=== PATIENT | female | born 1930 | race Caucasian/White ===

== ENCOUNTER 2018-11-25 14:06 | Inpatient (IN) ==
[2018-11-25 14:43] LABS: ALLEN TEST YES; BE -2.7 mmoll (-3.0-3.0); BLOOD TYPE ARTERIAL; HCO3-(ACT) 22.8 mmoll (20.0-26.0); O2(CT) 15.5 mL/dL (15.0-23.0); O2HB 94.1 % (95.0-99.0); PCO2(98.6) 40 mmHg (35-45); PO2(98.6) 72 mmHg (60-100); SAMPLE BLOOD; SAO2 97.4 % (95.0-100.0); THB 11.7 g/dL (11.5-17.4); pH(98.6) 7.36 (7.35-7.45)
[2018-11-25 14:44] LABS: MODALITY NRB
[2018-11-25 15:05] LABS: BASO# 0.03 X1000 (0.0-0.2); BASO% 0.1 % (0.0-0.8); EOS# 0.05 X1000 (0.0-0.7); EOS% 0.2 % (0.0-10.0); HEMATOCRIT 36.6 % (37.0-47.0); HEMOGLOBIN 12.4 g/dL (12.0-16.0); IMM GRAN% 0.5 % (0.0-0.5); LYMPH# 1.25 X1000 (1.2-3.4); LYMPH% 5.7 % (20.5-51.1); MCH 33.7 PG (27-31); MCHC 33.9 g/dL (33-37); MCV 99.5 FL (81-99); MONO# 0.83 X1000 (0.11-0.59); MONO% 3.8 % (1.7-9.3); MPV 11.8 FL (7.4-10.4); NEUT# 19.86 X1000 (1.4-6.5); NEUT% 89.7 % (42.2-75.2); PLT 217 X1000 (130-400); RBC 3.68 XMIL (4.2-5.4); WBC 22.12 X1000 (4.8-10.8)
--- NOTE | 2018-11-25 15:08 | Diag Imaging Result Doc PS360 ---
CHEST-1 VIEW - 11/25/2018 INDICATION: sob COMPARISON: 02/09/2018 FINDINGS: There is new dense infiltrate in the right midlung and left lung base. Heart size is grossly normal. No pneumothorax or pleural effusion. IMPRESSION: Dense bilateral infiltrates, correlate for pneumonia. Electronically signed by Rambo Hi 11/25/2018 3:05 PM
--- NOTE | 2018-11-25 15:27 | PROVIDER DOCUMENTATION ---
This chart was entered by Eboni Jackson Scribe, acting as scribe for Luis Nixon MD. HPI-Respiratory General - General Chief Complaint: Shortness of Breath Stated Complaint: SOB Time Seen by Provider: 11/25/18 14:25 Source: patient, EMS Unable to obtain history due to:: altered Allergies/Adverse Reactions: Patient Allergies Allergy/AdvReac Type Severity Reaction Status Date / Time No Known Allergies Allergy Verified 11/25/18 15:39 Home Medications: Home Medication List Medication Instructions Recorded Confirmed Last Taken Type Multivitamin [Multivitamins] 1 each PO DAILY 01/02/16 11/25/18 01/02/16 07:45 History Propranolol HCl 60 mg PO DAILY 01/02/16 11/25/18 01/02/16 07:45 History Aspirin [Adult Aspirin Regimen] 81 mg PO DAILY 04/15/18 11/25/18 Unknown History Lactulose 10 mg PO DAILY 04/15/18 11/25/18 Unknown History Melatonin 10 mg PO QHS 04/15/18 11/25/18 Unknown History Quetiapine Fumarate [Seroquel] 25 mg PO DAILY 04/15/18 11/25/18 Unknown History Acetaminophen 2 tab PO Q8HR PRN 11/25/18 11/25/18 Unknown History Clonazepam 1 tab PO QAM & NOON 11/25/18 11/25/18 Unknown History Clonazepam 2 tab PO QHS 11/25/18 11/25/18 Unknown History Duloxetine [Cymbalta] 30 mg PO QHS 11/25/18 11/25/18 Unknown History Levofloxacin 250 mg PO DAILY 11/25/18 11/25/18 Unknown History Megestrol Acetate [Megace Liquid] 5 ml PO BID 11/25/18 11/25/18 Unknown History Quetiapine Fumarate 1 tab PO DAILY 11/25/18 11/25/18 Unknown History Rivastigmine Tartrate 3 mg PO QHS 11/25/18 11/25/18 Unknown History [Rivastigmine] Rivastigmine [Exelon] 1.5 mg PO DAILY 11/25/18 11/25/18 Unknown History - History of Present Illness-Resp Nature of Presenting Problem: 87 yof presents to the ed via ems as a dnr and per ems sob with possible aspiration. pt is unresponsive on exam Quality of Pain: reports: none Severity in ED: reports: mild Onset/Duration: reports: this morning Timing: reports: still present Cough Quality/Degree: reports: no cough Episode Frequency: occasional episodes Current Respiratory Medication Therapy: Initiated see nurses note Modifying Factors: improves with: nothing Associated Symptoms: reports: shortness of breath. denies: cough, fever/chills Similar Symptoms Previously?: Yes Recently seen or treated by another doctor?: No Review of Systems - Adult - REVIEW OF SYSTEMS - ADULT ROS:: unobtainable per condition Constitutional: denies: chills, fever Eyes: reports: no symptoms reported Ears, Nose, Mouth & Throat: reports: no symptoms reported Cardiovascular: denies: chest pain, palpitations Respiratory: reports: see HPI, shortness of breath. denies: cough Gastrointestinal: denies: abdominal pain, diarrhea, nausea, vomiting Genitourinary: reports: no symptoms reported Musculoskeletal: reports: no symptoms reported Integumentary: reports: no symptoms reported Neurological: denies: dizziness/vertigo, headache/migraines Psychiatric: reports: no symptoms reported Endocrine: reports: no symptoms reported Hematologic/Lymphatic: reports: no symptoms reported Allergic/Immunologic: reports: no symptoms reported All Other Systems: Reviewed and Negative Past History - Adult - PAST MEDICAL HISTORY-ADULT Review of Records: reports: Old Records Reviewed, Nursing Assessment Review, Medications Reviewed, Social history reviewed & non-contributory. Major Childhood Illnesses: reports: denies history Cardiovascular: reports: HTN Respiratory: reports: denies history Gastrointestinal: reports: GERD Obstetrical/Gynecological: reports: denies history Genitourinary: reports: denies history Musculoskeletal: reports: denies history Hand Dominance: Right Handed Neurological: reports: dementia, Parkinson's, TIA Endocrine/Immune: reports: Diabetes Diabetes Type: Type 2 Other Conditions: reports: denies history - PRIOR SURGERIES/PROCEDURES Surgical/Procedure History: reports: reviewed, not pertinent - IMMUNIZATION STATUS Childhood Immunizations: See Nurse Assessment Flu Vaccine: See Nurse Assessment - FAMILY HISTORY Family History: reviewed, not pertinent - SOCIAL HISTORY Smoking: non-smoker Substance Use: none/never Living Situation: family Physical Exam-General - PHYSICAL EXAM-ADULT Initial Vital Signs Reviewed: Yes - CONSTITUTIONAL General Appearance: other (unresponsive). negative: appears well - EYES Eyes: pale conjunctivae - HEAD, EARS, NOSE, MOUTH & THROAT HENMT: negative: moist mucous membranes - NECK Neck: normal inspection - RESPIRATORY Respiratory: respiratory distress (84 o2 sat), increased rate (28) - CARDIOVASCULAR Cardiovascular: normal peripheral pulses, regular rate, rhythm - GASTROINTESTINAL (ABDOMEN) Abdominal Exam: normal bowel sounds, non tender, soft - LYMPHATIC Lymphatic: no adenopathy - MUSCULOSKELETAL Back Exam: normal inspection, no CVA tenderness, no vertebral tenderness Extremity: pelvis stable - SKIN Integumentary: pallor - PSYCHIATRIC Psych/Mental Status: other (unresponsive) Progress - PLAN OF CARE/RESULTS Progress/Plan/Lab Results: Laboratory Results - last 24 hr 11/25/18 11/25/18 11/25/18 14:25 14:25 14:25 WBC 22.12 H RBC 3.68 L Hgb 12.4 Hct 36.6 L MCV 99.5 H MCH 33.7 H MCHC 33.9 RDW Std Deviation 13.0 Plt Count 217 MPV 11.8 H Immature Gran % (Auto) 0.5 Neut % (Auto) 89.7 H Lymph % (Auto) 5.7 L Angelina % (Auto) 3.8 Eos % (Auto) 0.2 Baso % (Auto) 0.1 Immature Gran # (Auto) 0.10 H Neut # (Auto) 19.86 H Lymph # (Auto) 1.25 Angelina # (Auto) 0.83 H Eos # (Auto) 0.05 Baso # (Auto) 0.03 Specimen Type Sample Site pH pCO2 pO2 HCO3 Base Excess Oxyhemoglobin ABG O2 Sat (Calculated) ABG O2 Saturation ABG Carboxyhemoglobin ABG Methemoglobin Migue Test A-a O2 Difference Total Hemoglobin Lactate Liter Flow Blood Gas Modality FiO2 % Sodium 154 H Potassium 3.6 Chloride 117 H Carbon Dioxide 23 L Anion Gap 14 BUN 25 H Creatinine 1.2 H Estimated GFR/1.73 m2 42 BUN/Creatinine Ratio 21 Glucose 138 H Calculated Osmolality 312 Calcium 9.7 Magnesium Total Bilirubin 0.61 AST 20 ALT 15 Alkaline Phosphatase 120 H Troponin T [id number]-[id number] Pept Total Protein 7.7 Albumin 3.6 Globulin 4.1 Albumin/Globulin Ratio 0.9 Plasma Lactate 1.7 Urine Source Urine Color Urine Clarity Urine Turbidity Urine pH Ur Specific [place] Urine Protein Ur Glucose (Stick) Urine Ketones Ur Ketones (Stick) Urine Blood Urine Nitrite Urine Bilirubin Urine Urobilinogen Urobilinogen Dipstick Urine Leukocytes Urine WBC (Auto) Urine RBC (Auto) U Epithel Cells (Auto) Urine Bacteria (Auto) Urine Microscopic RBC Urine WBC Urine Microscopic WBC Ur Epithelial Cells Urine Bacteria Urine Glucose 11/25/18 11/25/18 11/25/18 14:25 14:25 14:25 WBC RBC Hgb Hct MCV MCH MCHC RDW Std Deviation Plt Count MPV Immature Gran % (Auto) Neut % (Auto) Lymph % (Auto) Angelina % (Auto) Eos % (Auto) Baso % (Auto) Immature Gran # (Auto) Neut # (Auto) Lymph # (Auto) Angelina # (Auto) Eos # (Auto) Baso # (Auto) Specimen Type Sample Site pH pCO2 pO2 HCO3 Base Excess Oxyhemoglobin ABG O2 Sat (Calculated) ABG O2 Saturation ABG Carboxyhemoglobin ABG Methemoglobin Migue Test A-a O2 Difference Total Hemoglobin Lactate Liter Flow Blood Gas Modality FiO2 % Sodium Potassium Chloride Carbon Dioxide Anion Gap BUN Creatinine Estimated GFR/1.73 m2 BUN/Creatinine Ratio Glucose Calculated Osmolality Calcium Magnesium 2.2 Total Bilirubin AST ALT Alkaline Phosphatase Troponin T < 0.010 Oxq-[id number]-Qpxtdjhpnjp Pept 2908 H Total Protein Albumin Globulin Albumin/Globulin Ratio Plasma Lactate Urine Source Urine Color Urine Clarity Urine Turbidity Urine pH Ur Specific [place] Urine Protein Ur Glucose (Stick) Urine Ketones Ur Ketones (Stick) Urine Blood Urine Nitrite Urine Bilirubin Urine Urobilinogen Urobilinogen Dipstick Urine Leukocytes Urine WBC (Auto) Urine RBC (Auto) U Epithel Cells (Auto) Urine Bacteria (Auto) Urine Microscopic RBC Urine WBC Urine Microscopic WBC Ur Epithelial Cells Urine Bacteria Urine Glucose 11/25/18 11/25/18 11/25/18 14:35 15:21 15:21 WBC RBC Hgb Hct MCV MCH MCHC RDW Std Deviation Plt Count MPV Immature Gran % (Auto) Neut % (Auto) Lymph % (Auto) Angelina % (Auto) Eos % (Auto) Baso % (Auto) Immature Gran # (Auto) Neut # (Auto) Lymph # (Auto) Angelina # (Auto) Eos # (Auto) Baso # (Auto) Specimen Type ARTERIAL Sample Site R RADIAL pH 7.36 pCO2 40 pO2 72 HCO3 22.8 Base Excess -2.7 Oxyhemoglobin 94.1 L ABG O2 Sat (Calculated) 15.5 ABG O2 Saturation 97.4 ABG Carboxyhemoglobin 2.40 ABG Methemoglobin 1.0 Migue Test YES A-a O2 Difference 591.0 Total Hemoglobin 11.7 Lactate 1.60 Liter Flow 15.0 Blood Gas Modality NRB FiO2 % 100.0 Sodium Potassium Chloride Carbon Dioxide Anion Gap BUN Creatinine Estimated GFR/1.73 m2 BUN/Creatinine Ratio Glucose Calculated Osmolality Calcium Magnesium Total Bilirubin AST ALT Alkaline Phosphatase Troponin T Sou-X-Pbthklqhddv Pept Total Protein Albumin Globulin Albumin/Globulin Ratio Plasma Lactate Urine Source Cancelled CATH Urine Color Cancelled YELLOW Urine Clarity HAZY A Urine Turbidity Cancelled Urine pH Cancelled 5.0 Ur Specific [place] Cancelled >= 1.030 Urine Protein Cancelled 100 A Ur Glucose (Stick) Cancelled Urine Ketones NEGATIVE Ur Ketones (Stick) Cancelled Urine Blood Cancelled TRACE-INTACT A Urine Nitrite Cancelled NEGATIVE Urine Bilirubin Cancelled NEGATIVE Urine Urobilinogen 0.2 Urobilinogen Dipstick Cancelled Urine Leukocytes Cancelled Urine WBC (Auto) Cancelled Urine RBC (Auto) Cancelled U Epithel Cells (Auto) Cancelled Urine Bacteria (Auto) Cancelled Urine Microscopic RBC <10 Urine WBC NEGATIVE Urine Microscopic WBC <10 Ur Epithelial Cells <10 Urine Bacteria NEGATIVE Urine Glucose NEGATIVE Orders Category Date Time Status Admit - [facility] Routine AdmDCTranf 11/25/18 16:32 Active Activity - Up with Assistance ORDERED Care 11/25/18 16:32 Active Apply Mechanical Device [QM] ORDERED Care 11/25/18 16:32 Active Aspiration Precautions DIRECTED Care 11/25/18 16:32 Active DVT/PE Risk Assess/Protocol [QM] ORDERED Care 11/25/18 16:32 Active Elevate Head of Bed DIRECTED Care 11/25/18 16:32 Active Encourage Fluids DIRECTED Care 11/25/18 16:32 Active Intake and Output-Strict Q 8-HR ASSESS Care 11/25/18 16:32 Active Nursing- Assist w/ IS as order ORDERED Care 11/25/18 16:32 Active Resuscitation Status Routine Care 11/25/18 16:07 Ordered Turn, Cough and Deep Breathe Q2HR Care 11/25/18 16:32 Active Update & Confirm Home Medicati ROUTINE Care 11/25/18 16:32 Active Vital Signs Order Q 4-HR ASSESS Care 11/25/18 16:32 Active NPO Diet 11/25/18 16:09 Active CHEST-1 VIEW [RAD] Stat Exams 11/25/18 14:25 Completed ABG [RESP] Routine Lab 11/25/18 14:35 Completed BLOOD CULTURE [BLDCUL] Stat Lab 11/25/18 14:26 Results CBC WITH DIFF [HEME] Routine Lab 11/26/18 07:16 Results CBC WITH DIFF [HEME] Stat Lab 11/25/18 14:25 Completed COMPREHENSIVE METABOLIC PANEL [CHEM] Routine Lab 11/26/18 07:16 Received COMPREHENSIVE METABOLIC PANEL [CHEM] Stat Lab 11/25/18 14:25 Completed LACTATE, PLASMA [CHEM] Stat Lab 11/25/18 14:25 Completed MAGNESIUM [CHEM] Stat Lab 11/25/18 14:25 Completed PRO B-NATRIURETIC PEPTIDE Stat Lab 11/25/18 14:25 Completed SPUTUM CULTURE WITH GRAM STAIN [RM] Routine Lab 11/25/18 18:20 Results TROPONIN T Stat Lab 11/25/18 14:25 Completed Albuterol 2.5MG/Ipratrop 0.5MG [Duoneb (A & A)] Med 11/25/18 16:32 Active 3 ml INH Q2H PRN PRN Albuterol 2.5MG/Ipratrop 0.5MG [Duoneb (A & A)] Med 11/25/18 19:30 Active 3 ml INH RTQ4H Aerosol Treatments Routine Oth 11/25/18 16:32 Completed Aerosol Treatments Stat Oth 11/25/18 16:32 Completed Incentive Spirometer Routine Oth 11/25/18 16:32 Completed Oxygen Device Routine Oth 11/25/18 16:32 Completed Pulse Oximetry Routine Oth 11/25/18 16:32 Completed EKG [EKG] Stat Ther 11/25/18 14:25 Draft Transfer/Admit Order [TRANSFER] Routine Transfer 11/25/18 16:09 Completed Result Diagrams: 11/26/18 07:16 11/25/18 14:25 - REASSESSMENT Reassessment #1 Time Reassessed: 15:16 Status: unchanged - XRAY 1 XRAY: Bilateral XRAY Study: Chest Impression: See EMR Report (CHEST-1 VIEW - 11/25/2018 INDICATION: sob COMPARISON: 02/09/2018 FINDINGS: There is new dense infiltrate in the right midlung and left lung base. Heart size is grossly normal. No pneumothorax or pleural effusion. IMPRESSION: Dense bilateral infiltrates, correlate for pneumonia. Electronically signed by Rambo Hi 11/25/2018 3:05 PM 1505 Interpreting Physician: Rambo Hi MD Dictated Date/Time: 11/25/18 1505 cc: Luis Nixon MD; Deonte Crowley) - CONSULTS/PCP/HOSPITALIST Notification #1 *Consult/PCP/Hospitalist*: hospitalist dr pink Time Discussed: 15:21 Reason/Comments: pneumonia Departure - Departure Date of Disposition Decision: 11/25/18 Time of Disposition Decision: 15:21 DIAGNOSIS: Pneumonia Disposition: ADMITTED INPATIENT 09 Certified Medical Emergency: Emergent Condition: Fair - Critical Care Note This patient required my direct & personal management of CC.: Yes Total Time (mins): 34 Critical Care Statement: This patient required my direct personal management to treat or rule out processes, the absence of which, could potentiallly result in sudden, clinically significant life or limb threatening deterioration. Attestation - Physician/ BETHANY Attestation Patient care was provided by Advanced Practice Provider:: No The physician spent face to face time with patient:: Yes Advanced Practice Provider documentation review:: Supervising physician onsite and consulted in the evaluation and care of this patient. The physician did have a face to face encounter with the patient. This chart was documented by the indicated scribe, (Eboni Jackson, Anshu) and accurately reflects the services I performed and decisions made by me, Luis Nixon MD, as attested by the provider's signature.
--- NOTE | 2018-11-25 15:28 | EKG Report ---
Test Performed on : 11/25/2018 2:25:04 PM Test Reason : SOB Blood Pressure : / mmHG Vent. Rate : 100 BPM Atrial Rate : 100 BPM P-R Int : 194 ms QRS Dur : 084 ms QT Int : 336 ms P-R-T Axes : 081 012 092 degrees QTc Int : 433 ms Normal sinus rhythm. Nonspecific T wave abnormality Abnormal ECG When compared with ECG of 27-APR-2018 11:59, NE interval has decreased Vent. rate has increased BY [address] no longer elevated in Lateral leads T wave inversion now evident in Lateral leads Unconfirmed Result
[2018-11-25 15:40] LABS: URINE SOURCE CATH
[2018-11-25 15:46] LABS: ALB/GLOB RATIO 0.9; ALBUMIN 3.6 g/dL (3.5-5.0); CALCIUM 9.7 mg/dL (8.8-10.2); CREATININE 1.2 mg/dL (0.5-0.9); POTASSIUM 3.6 mmol/L (3.5-5.1); TOTAL BILIRUBIN 0.61 mg/dL (0.20-1.00); TOTAL PROTEIN 7.7 g/dL (6.3-8.3)
[2018-11-25 15:46] LABS: BILIRUBIN URINE NEGATIVE (NEGATIVE); BLOOD URINE TRACE-INTACT (NEGATIVE); CLARITY HAZY (CLEAR); COLOR YELLOW; GLUCOSE URINE NEGATIVE (NEGATIVE); KETONE URINE NEGATIVE (NEGATIVE); LEUKOCYTES URINE NEGATIVE (NEGATIVE); NITRITE URINE NEGATIVE (NEGATIVE); PROTEIN URINE 100 mg/dL (NEGATIVE); SP GRAVITY URINE >= 1.030; UROBILINOGEN URINE 0.2 EU/dL (0.2-1.0)
[2018-11-25 15:48] LABS: URINE BACTERIA NEGATIVE /HFP; URINE EPITHELIAL CELLS <10 /HPF (<10); URINE RBC <10 /HPF (<10); URINE WBC <10 /HPF (<10)
[2018-11-25] MEDS ORDERED: DUONEB (A & A) INH PRN (16:32)
[2018-11-25] MEDS ORDERED: NS 1,000 ML IV SCH (16:45)
--- NOTE | 2018-11-25 17:59 | HISTORY AND PHYSICAL ---
PRIMARY CARE PROVIDER: [facility]. CHIEF COMPLAINT: Aspiration per family at bedside. HISTORY OF PRESENT ILLNESS: Ms. Chao is an 87-year-old female who has a past medical history of Alzheimer's dementia. She is a permanent resident of [facility]. DNR level 1 with a past medical history of insomnia, Parkinson's, atrial flutter, anorexia, anemia, chronic kidney disease stage 3, bilateral hip osteoarthritis, spondylosis, anxiety, depression, essential hypertension, frequent UTIs, constipation, history of falls per family at bedside. Saturday, when they went to go visit her she aspirated on her dinner. She was given supplemental O2, placed on breathing treatments, then Saturday she continued to be lethargic and remained on O2. That night she aspirated again and then again this morning. She had labored breathing. This time she aspirated on ice cream. She was continued on O2. She was given more breathing treatments, suction therapy. O2 saturations per family report was only brought up to 75%, so they were instructed to send her to the ED. Workup in the ED with a chest x-ray that revealed dense bilateral infiltrates that correlate for pneumonia. She was afebrile, slightly tachycardic, tachypneic, normal blood pressures. Initially, she was 84% on room air. She was placed on a non- rebreather. Her O2 saturations came up to 93%. She had an elevated white count of 22. A sodium of 154, potassium of 3.6, BUN of 25, creatinine 1.2, blood glucose of 138. Urinalysis was negative for bacteria. Per family, she is to continue to be a DNR level 1. She will remain NPO, placed on aspiration precautions. The patient is not responding to any questions. She did not follow any commands. She did arouse with touch, but nothing that was audible that you could understand. REVIEW OF SYSTEMS: A 14 point review of systems unable to obtain secondary to the patient's condition. PAST MEDICAL HISTORY: 1. Insomnia. 2. Parkinson's. 3. Atrial flutter. 4. Anorexia. 5. Anemia. 6. Chronic kidney disease stage 3. 7. Bilateral hip osteoarthritis. 8. Anxiety and depression. 9. Essential hypertension. 10. Frequent UTIs. 11. Constipation. 12. History of falls. 13. Alzheimer's dementia. All history obtained from record and family. PAST SURGICAL HISTORY: 1. Multiple breast biopsies. 2. Hysterectomy. 3. Right shoulder pinning. 4. Cataract surgery. SOCIAL HISTORY: She is a long-term resident of [facility] for a year. 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 Never a smoker. No alcohol. No illicit drug use. Per medical record, she is a wanderer, combative at times, could not feed herself, is always confused and needs assistance with transfers. FAMILY HISTORY: Brother with schizophrenia. Mother and father with heart disease. Several brothers and sisters with numerous types of cancer. HOME MEDICATIONS: Have not been reconciled. ALLERGIES: No known drug allergies. PHYSICAL EXAMINATION: VITAL SIGNS: Temperature is 97.5 degrees, heart rate 100, respirations 25, blood pressure 140/64, O2 is 93% on non-rebreather. GENERAL: Ms. Chao is an 87-year-old female who is lying on the bed, did not follow any commands. She does somewhat arouse to physical stimuli. She is tachypneic but in no acute distress. HEENT: Atraumatic, normocephalic. PERRL. NECK: Supple. Trachea midline. CARDIOVASCULAR: S1, S2 appreciated. No murmurs, gallops, rubs noted. No JVD noticeable. No lower extremity edema. RESPIRATORY: Lung sounds bilateral rhonchi throughout all lung palmer. ABDOMEN: Appears to be soft, nontender, nondistended. Positive bowel sounds 4 quadrants. EXTREMITIES: No clubbing or cyanosis. NEUROLOGIC: The patient's baseline is Alzheimer's dementia, confused, wanders, combative, cannot feed self, assist with transfers. Per [id number] at bedside sometimes she does not recognize them. Again she did not follow any commands, answer any questions, but she will awaken somewhat to physical stimuli. DIAGNOSTIC DATA: 1. Chest x-ray: Dense bilateral infiltrates. Correlate for pneumonia. 2. EKG: Normal sinus rhythm at 100 beats per minute. LABORATORY DATA: White count 22, hemoglobin and hematocrit 12 and 36, platelet count 217,000. Sodium 154, potassium 3.6, BUN 25, creatinine 1.2, blood glucose is 138, alkaline phosphatase 120. ProBNP is 2908. Urinalysis is negative. ASSESSMENT AND PLAN: 1. Aspiration pneumonia. The patient is from a intermediate. We will treat her with Zyvox and cefepime, IV fluids, aggressive pulmonary toilet, bronchodilators. Place her on aspiration precautions. Remain NPO. 2. Acute kidney injury on chronic kidney disease. We will continue with gentle hydration. 3. Hypernatremia, in the setting of dehydration. We will continue with gentle hydration. Recheck a.m. labs. 4. Alzheimer's dementia. The patient is a permanent resident at [facility]. Per their note, she is always confused. She is a wanderer, combative, could not feed self and needs assistance with all transfers. 5. DNR level 1. We will get palliative care on board for goals of care. The family was asking about possible hospice at some point if she did not make a recovery. They do not want a feeding tube. 6. Further recommendation to follow physician evaluation and laboratory data. 7. Hypoxemia. We will continue with supplemental O2. 8. Further recommendation to follow physician evaluation, laboratory data and diagnostic data. Dictated by OZZY Arriaga for Abby Agudelo MD cc: Abby Agudelo MD I performed a face to face encounter on the patient. I reviewed all labs and imaging on the patient. I agree with the H&P as dictated. is a 87 year old female with a history of multiple medical problems who was sent to the ER from [facility] due to AMS and suspected aspiration pneumonia. A chest xray revealed dense bilateral infiltrates. On exam, the patient is somnolent. Her breath sounds are coarse with rhonchi bilaterally. She is tachycardic. S1, S2 normal. The patient is critically ill. Her family has decided to make her a DNR level 1. The patient has bilateral lobe pneumonia. Will start IV antibiotics at the family's request. They would like to see if the patient improves before making a decision regarding hospice. MATTHEWD
[2018-11-25] MEDS: D5W 1,000 ML IV SCH (18:51)
[2018-11-25] MEDS: MAXIPIME 1 GM in NS 50 ML IV SCH (18:52)
[2018-11-25] MEDS: DUONEB (A & A) INH SCH ×2 (19:05→23:25)
[2018-11-25] MEDS: ZYVOX 600 MG/D5W 600 MG/300 ML IVPB IV SCH (20:06)
[2018-11-26] MEDS ORDERED: KLONOPIN PO ONE (01:51)
[2018-11-26] MEDS ORDERED: MELATONIN PO ONE (01:52)
[2018-11-26] MEDS ORDERED: SEROQUEL PO ONE (01:53)
[2018-11-26] MEDS: DUONEB (A & A) INH SCH ×6 (03:34→23:40)
[2018-11-26] MEDS: TYLENOL PR PRN ×2 (03:45→09:37)
[2018-11-26] MEDS: MAXIPIME 1 GM in NS 50 ML IV SCH ×2 (04:53→17:01)
--- NOTE | 2018-11-26 07:10 | Diag Imaging Result Doc PS360 ---
EXAM: CHEST-PORTABLE 11/26/2018 HISTORY: Pneumonia TECHNIQUE: AP portable at 0540 COMMENT: The inspiration is less optimal than on 11/25/2018. There is increased alveolar opacity bilaterally which may be a consequence of the poor inspiration. There is obscuration of the right costophrenic angle which was not the case previously. IMPRESSION: Bilateral bronchopneumonia particularly in the right upper lobe. This may questionably be worse than on the previous study. Electronically signed by Jerson Garrido 11/26/2018 7:08 AM
[2018-11-26 07:49] LABS: BASO# 0.02 X1000 (0.0-0.2); BASO% 0.1 % (0.0-0.8); EOS# 0.04 X1000 (0.0-0.7); EOS% 0.2 % (0.0-10.0); HEMOGLOBIN 10.6 g/dL (12.0-16.0); IMM GRAN# 0.09 X1000 (0.0-0.04); IMM GRAN% 0.5 % (0.0-0.5); LYMPH% 6.8 % (20.5-51.1); MCH 33.9 PG (27-31); MCHC 34.2 g/dL (33-37); MPV 11.8 FL (7.4-10.4); NEUT# 15.56 X1000 (1.4-6.5); NEUT% 88.4 % (42.2-75.2); PLT 193 X1000 (130-400); RBC 3.13 XMIL (4.2-5.4); RDW 12.9 % (11.5-14.5); WBC 17.61 X1000 (4.8-10.8)
[2018-11-26 08:05] LABS: ALB/GLOB RATIO 0.9; ALBUMIN 2.9 g/dL (3.5-5.0); BANDS 20 % (0-1); CALCIUM 9.4 mg/dL (8.8-10.2); CREATININE 1.2 mg/dL (0.5-0.9); LYMPHS 12 % (21-51); POTASSIUM 3.8 mmol/L (3.5-5.1); SEGS 64 % (42-75); TOTAL BILIRUBIN 0.59 mg/dL (0.20-1.00); TOTAL PROTEIN 6.1 g/dL (6.3-8.3)
[2018-11-26] MEDS: ZYVOX 600 MG/D5W 600 MG/300 ML IVPB IV SCH ×2 (08:31→21:04)
[2018-11-26] MEDS ORDERED: STERILE WATER INJ. INJ ONE (08:56)
[2018-11-26] MEDS ORDERED: GEODON IM ONE (08:56)
[2018-11-26] MEDS: D5W 1,000 ML IV SCH (11:09)
[2018-11-26] MEDS: ATIVAN IV PRN ×2 (12:18→22:17)
[2018-11-26] MEDS ORDERED: ATROPINE 1 % OPHTH SOLN SL PRN (14:18)
--- NOTE | 2018-11-26 15:35 | PROGRESS NOTE ---
DATE: 11/26/2018 SUBJECTIVE: The patient is resting comfortably in bed. She is unresponsive. OBJECTIVE: Vital Signs: Temperature 99 degrees, blood pressure 129/63, heart rate 81, respirations 20, and O2 saturation 98% on nonrebreather mask. General: This is a chronically ill- appearing elderly female lying in bed in no acute distress. Heart: S1 and S2 normal. Lungs: Coarse breath sounds with rhonchi bilaterally. Abdomen: Positive bowel sounds. Soft, nontender, nondistended. Extremities: No edema, no cyanosis. Neurologic: The patient is comatose. LABS: White blood cell count 17, hemoglobin 10, hematocrit 31, platelets 193,000. Sodium 149, potassium 3.8, chloride 116, CO2 of 23, BUN 29, creatinine 1.2, glucose 136, AST 18, ALT 19, alkaline phosphatase 63. ASSESSMENT AND PLAN: 1. Acute hypoxemic respiratory failure secondary to pneumonia. We will continue with antibiotics and bronchodilator therapy. 2. Pneumonia. Continue on broad-spectrum antibiotic coverage. 3. Hypernatremia. Improved. 4. Leukocytosis. Improved. Continue with antibiotic therapy. 5. Chronic kidney disease. Stable. 6. Disposition. The patient is a Do Not Resuscitate level 1. I met with the patient's family and they want to continue with the antibiotics for today. They also met with Jael with Palliative Care and they have decided to have the patient sent back to [facility] on hospice tomorrow. cc: Abby Agudelo MD
[2018-11-26] MEDS: TRANSDERM-SCOP TD SCH (17:01)
[2018-11-26] MEDS ORDERED: KLONOPIN PO SCH (21:00)
[2018-11-26] MEDS ORDERED: MELATONIN PO SCH (21:00)
[2018-11-26] MEDS ORDERED: SEROQUEL PO SCH (21:00)
[2018-11-26] MEDS: MORPHINE IV PRN (23:09)
[2018-11-27] MEDS: ATIVAN IV PRN ×7 (00:24→18:16)
[2018-11-27] MEDS: MAXIPIME 1 GM in NS 50 ML IV SCH ×2 (04:45→07:28)
[2018-11-27] MEDS: DUONEB (A & A) INH SCH ×2 (06:38→11:05)
[2018-11-27 08:00] LABS: HEMATOCRIT 34.4 % (37.0-47.0); HEMOGLOBIN 11.6 g/dL (12.0-16.0); MCH 33.3 PG (27-31); MCHC 33.7 g/dL (33-37); MCV 98.9 FL (81-99); MPV 11.8 FL (7.4-10.4); RBC 3.48 XMIL (4.2-5.4); RDW 12.9 % (11.5-14.5); WBC 16.11 X1000 (4.8-10.8)
[2018-11-27 08:12] LABS: CALCIUM 9.1 mg/dL (8.8-10.2); POTASSIUM 3.7 mmol/L (3.5-5.1)
[2018-11-27] MEDS ORDERED: MAXIPIME ONE (09:15)
[2018-11-27] MEDS ORDERED: NS 50 ML ONE (09:15)
[2018-11-27] MEDS: MORPHINE IV PRN ×5 (09:58→18:16)
--- NOTE | 2018-11-27 16:48 | PROGRESS NOTE ---
DATE: 11/27/2018 SUBJECTIVE: The patient is resting comfortably. Her family is present at the bedside. OBJECTIVE: Vital Signs: Temperature 98.8, blood pressure 124/66, heart rate 73, respirations 18, O2 saturations 100% on non-rebreather. General: This is a chronically ill-appearing, elderly female, lying in bed in no acute distress. Heart: S1, S2 normal. Regular rate and rhythm. Lungs: Equal air entry bilaterally. No wheezing. No rales. Abdomen: Positive bowel sounds. Soft, nontender, nondistended. Extremities: No edema. No cyanosis. Neurologic: The patient is comatose. ASSESSMENT: 1. Acute hypoxemic respiratory failure. 2. Pneumonia. 3. Hypernatremia. 4. Advanced dementia. PLAN: Continue with comfort measures. The patient's family was updated on the patient's clinical condition. cc: Abby Agudelo MD
[2018-11-28] MEDS: ATIVAN IV PRN ×5 (00:39→22:16)
[2018-11-28] MEDS: MORPHINE IV PRN ×9 (00:51→22:16)
[2018-11-28] MEDS: TYLENOL PR PRN (08:25)
--- NOTE | 2018-11-28 16:16 | PROGRESS NOTE ---
DATE: 11/28/2018 SUBJECTIVE: The patient is resting comfortably in bed. Her family is present at the bedside. No acute events noted overnight. OBJECTIVE: Vital Signs: Temperature 98.4, blood pressure 116/56, heart rate 97, respirations 20, O2 saturations 97% on non-rebreather. General: This is a comatose female lying in bed in no acute distress. Heart: S1, S2 normal. Tachycardic. Lungs: Equal air entry bilaterally. No crackles. No rales. Abdomen: Positive bowel sounds. Soft, nontender, nondistended. Extremities: No edema, no cyanosis. Neurologic: The patient is comatose. ASSESSMENT: 1. Acute hypoxemic respiratory failure. 2. Pneumonia. 3. Hypernatremia. 4. Advanced dementia. PLAN: Continue with comfort measures. The patient's family was updated at the bedside. We will also increase the patient's morphine dosage. cc: Abby Agudelo MD
[2018-11-29] MEDS: ATIVAN IV PRN ×8 (00:41→19:47)
[2018-11-29] MEDS: MORPHINE IV PRN ×3 (00:41→05:18)
[2018-11-29 08:20] VITALS: BP 82/24
[2018-11-29] MEDS: TRANSDERM-SCOP TD SCH (14:40)
--- NOTE | 2018-11-29 20:58 | PROGRESS NOTE ---
DATE: 11/29/2018 SUBJECTIVE: The patient is comatose. Her family is present at the bedside. She does not appear to be in any distress. OBJECTIVE: Vital Signs: Temperature 98 degrees, blood pressure 82/24, heart rate 82, respirations 16, O2 saturation 98% on non-rebreather. General: This is a chronically ill- appearing, elderly female lying in bed in no acute distress. Heart: S1, S2 normal. Lungs: Coarse breath sounds bilaterally. Abdomen: Positive bowel sounds. Soft, nontender, nondistended. Extremities: No edema. No cyanosis. Neurologic: The patient is comatose. ASSESSMENT: 1. Acute hypoxemic respiratory failure. 2. Pneumonia. 3. Hypernatremia. 4. Advanced dementia. PLAN: The patient appears to be comfortable. We will continue with comfort measures. The patient's family was updated at the bedside today. cc: Abby Agudelo MD
--- NOTE | 2018-12-18 21:41 | DISCHARGE SUMMARY ---
ADMISSION DATE: 11/25/2018 DISCHARGE DATE: 11/29/2018 FINAL DISCHARGE DIAGNOSES: 1. Acute hypoxemic respiratory failure. 2. Pneumonia. 3. Hypernatremia. 4. Advanced dementia. HOSPITAL COURSE: Ms. Chao is an 87-year-old female with a history of multiple medical problems, who was brought to the ER with severe shortness of breath. On admission, an x-ray was done that revealed bilateral lobe pneumonia. The patient was admitted to the hospitalist service and started on broad-spectrum antibiotics after cultures were obtained. Due to the patient's frail condition, overall prognosis was discussed with the family who opted to make the patient a DNR level 1. Palliative Care was also consulted for assistance with goals of care. After meeting with Palliative Care, the patient's family opted to make the patient comfort measures only. On 11/29/2018, the patient was pronounced . The patient's family was notified of the patient's . cc: Abby Agudelo MD
== END 2018-11-29 21:50 | disposition expired | DRG 871 ==
LOC: SUPCPDRO → ED 14:06 → 3N 16:27
PROVIDERS: ATTEND Internal Medicine
CPT/HCPCS: 71010; 71045; 80048; 80053; 81001; 82805; 83605; 83735; 83880; 84145; 84484; 85025; 85027; 87040; 87070; 87205; 89220; 93005; 94640; 94761; 99285; A9270; J0692; J2020; J2060; J2270; J3486; J7070